=== PATIENT | female | born 2000 | race Hispanic/Latino ===

== ENCOUNTER 2021-10-20 00:06 | Emergency (ER) | payer OTHER ==
[~2021-10-20] VITALS: Ht 162.6 cm; Wt 68.0 kg
[2021-10-20] MEDS ORDERED: IBUPROFEN 600 MG TAB PO STA (00:34)
[2021-10-20] MEDS ORDERED: CYCLOBENZAPRINE HCL 10 MG TAB PO ONE (01:15)
[2021-10-20] MEDS ORDERED: CYCLOBENZAPRINE HCL 10 MG TAB ONE (01:30)
[2021-10-20] MEDS ORDERED: IBUPROFEN 200 MG TAB ONE (01:31)
[2021-10-20] MEDS ORDERED: IBUPROFEN 600 MG TAB ONE (01:32)
[2021-10-20] MEDS ORDERED: CYCLOBENZAPRINE5 MG PO (02:44)
[2021-10-20] MEDS ORDERED: IBUPROFEN600 MG PO (02:44)
== END 2021-10-20 03:00 | disposition home or self-care (01) ==
LOC: FSED 00:11
DX: M54.2 Cervicalgia (principal); M25.511 Pain in right shoulder; R51.9 Headache, unspecified; V43.52XA Car driver injured in collision with other type car in traffic accident, initial encounter; Y92.488 Other paved roadways as the place of occurrence of the external cause
CPT/HCPCS: 70450; 71045; 72125; 99283